=== PATIENT | female | born 1975 | race Caucasian/White ===

== ENCOUNTER 2016-10-26 07:13 | Emergency (ER) | payer OTHER ==
[~2016-10-26] VITALS: Ht 157.5 cm; Wt 108.9 kg
[~2016-10-26 07:13] MED LIST: AMOXICOT500 MG PO; ASPIRIN CHILDRE81 MG PO; ATENOLOL25 M1 PO; ATORVASTATIN CA10 MG PO; AUGMENTIN 875875 MG PO; BACTRIM DS 8001 TAB PO; CEPHALEXIN500 MG PO; FIBRO-TABS1 TAB PO; FLEXERIL10 MG PO; FLUOXETINE HYDR20 MG PO; FUROSEMIDE80 M1 PO; GOOD SENSE IBU200 MG PO; HYZAAR 100-251 EACH PO; HYZAAR 25 MG-101 TAB PO; K-DUR 20MEQ TA20 MEQ PO; KEFLEX500 MG PO; LASIX40 MG PO; LIPITOR40 M1 PO; LOSARTAN POTASS1 TA3 PO; MAGNESIUM OXID400 M1 PO; METHADONE H5 MG/5 M2 PO; METHADONE HC10 MG/M1 PO; MOBIC15 MG PO; OMEPRAZOLE40 MG PO; PERCOCET 325 MG1 TA2 PO; PERCOCET 5-3251 EACH PO; POTASSIUM CHLO20 ME1 PO; POTASSIUM CHLO20 ME2 PO; TORADOL10 MG PO; TRAZODONE50 MG PO; VICODIN 300 MG-1 TAB PO; VICODIN5-300 PO; VOLTAREN 25MG T25 MG PO
--- NOTE | 2016-10-26 08:01 | ED GI/GU/ABDOMINAL COMPLAINT ---
History of Present Illness General Chief Complaint: General Adult Stated Complaint: WEAKNESS, NAUSEA, HAND SWELLING, Source: patient, family, old records Exam Limitations: no limitations Vital Signs & Intake/Output Vital Signs & Intake/Output Vital Signs Date Time Temp Pulse Resp B/P Pulse O2 O2 Flow FiO2 Ox Delivery Rate 10/26 1450 97.1 96 18 125/65 96 10/26 1152 98.1 82 18 129/84 96 10/26 0717 98.0 80 18 95 Room Air Allergies Coded Allergies: NO KNOWN ALLERGIES (12/03/15) Reconcile Medications Aspirin (Children's Aspirin) 81 MG TAB.CHEW 81 MG PO DAILY HEART HEATLH Atenolol 25 MG TABLET 1 TAB PO DAILY BP (Reported) Atorvastatin Calcium (Lipitor) 40 MG TABLET 1 TAB PO DAILY CHOLESTEROL ( Reported) Furosemide 80 MG TAB 1 TAB PO DAILY FLUID RETENTION (Reported) Ibuprofen 200 MG TABLET 4 TAB PO DAILY PRN PAIN (Reported) LOSARTAN/HYDROCHLOROTHIAZIDE (Hyzaar 100-25 Tablet) 1 EACH TABLET 1 TAB PO DAILY BP (Reported) Magnesium Oxide 400 MG TABLET 1 TAB PO DAILY SUPPLEMENT (Reported) Methadone HCl 5 MG/5 ML SOLUTION 128 MG PO DAILY PAIN (Reported) Oxycodone HCl/Acetaminophen (Percocet 5-325 MG Tablet) 1 EACH TABLET 1 TAB PO Q4P PRN PAIN MODERATE TO SEVERE Potassium Chloride 20 MEQ TAB.ER.PRT 1 TAB PO BID Supplement TRAZODONE HCL (Trazodone HCl) 50 MG TAB 1 TAB PO QPM SLEEP (Reported) Triage Note: 41 Y/O FEMALE C/O GENERAL WEAKNESS AND "FEELING RUN DOWN" SINCE LAST NIGHT. STATES SHE HAS A HISTORY OF LOW POTASSIUM AND LOW MAGNESIUM AND THIS MAY FEEL SIMLIAR. WOKE UP TODAY WITH NAUSEA AND HEADACHE. STATES BOTH UPPER EXTREMITIES FEEL "WEIRD, NUMB". SPEAKING CLEARLY WITH NO NEURO DEFICITS NOTED. DENIES PAIN. AFEBRILE. Triage Nurses Notes Reviewed? yes ? n Is pt currently ? No HPI: Patient presents for evaluation of nausea weakness dizziness left arm and chin numbness, head congestion and headache/facial pressure that began about 4:00 this morning upon awakening. She tried Tylenol Cold medication without improvement. Symptoms are described as moderate to severe in intensity and essentially constant. She states she had similar symptoms the last time she had a low potassium and magnesium level. She denies any associated fever, vomiting, diarrhea, dysuria, rashes, known ill contacts or recent travel. Past History Travel History Traveled to [place] past 21 day No Medical History Any Pertinent Medical History? 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 Hx Contributory? No Review of Systems Review of Systems Constitutional: Reports: no symptoms. EENTM: Reports: see HPI. Respiratory: Reports: no symptoms. Cardiovascular: Reports: no symptoms. GI: Reports: no symptoms. Genitourinary: Reports: no symptoms. Musculoskeletal: Reports: no symptoms. Skin: Reports: no symptoms. Neurological/Psychological: Reports: headache, numbness. Hematologic/Endocrine: Reports: no symptoms. Immunologic/Allergic: Reports: no symptoms. All Other Systems: Reviewed and Negative Physical Exam Physical Exam Gastrointestinal: SEE BELOW Comments: Gen.: Well-nourished, well-developed, no acute respiratory distress. Head: Normocephalic, atraumatic. Face: tenderness, mild, to percussion over frontal and maxillary sinuses Eyes: Normal inspection bilaterally Ears: Normal inspection bilaterally Nose: Normal inspection Throat/mouth : Tacky mucosa no oropharyngeal erythema or soft tissue swelling Neck: Supple, full range of motion, no goiter Heart: Regular rate and rhythm, no murmurs rubs or gallops Lungs: Clear to auscultation bilaterally with normal air entry Chest: Nontender Back: Normal range of motion Abdomen: Soft, mild diffuse tenderness without rebound or guarding, nondistended , normal bowel sounds Extremities: Normal range of motion grossly, equal radial pulses, no cyanosis clubbing or edema Neurologic: Cranial nerves grossly intact, speech is clear Skin: warm and dry Psychiatric: Calm, cooperative, no apparent delusions or hallucinations Core Measures ACS in differential dx? No Severe Sepsis Present: No Septic Shock Present: No Progress Differential Diagnosis: ELECTROLYTE ABNORMALITY, cva, BRAIN MASS, CERVICAL DISC DISEASE,VIRAL SYNDROME Plan of Care: Orders Procedure Date/time Status RAPID VIRAL INFLUENZA A 10/26 799 Complete URINALYSIS 10/26 799 Active THYROID STIMULATING HORMONE 10/26 799 Complete MAGNESIUM 10/26 799 Complete COMPREHENSIVE METABOLIC PANEL 10/26 799 Complete CBC WITHOUT DIFFERENTIAL 10/26 799 Complete EKG 10/26 799 Active Laboratory Tests 10/26/16 1148: Urine Color YEL, Urine Clarity CLEAR, Urine pH 6.0, Ur Specific [place] 1.025, Urine Protein NEG, Urine Ketones NEG, Urine Nitrite NEG, Urine Bilirubin NEG, Urine Urobilinogen 0.2, Ur Leukocyte Esterase NEG, Ur Microscopic SEDIMENT EXAMINED, Urine RBC Pending, Urine Hemoglobin NEG, Urine Glucose NEG 10/26/16 0826: Anion Gap 11, Estimated GFR > 60, BUN/Creatinine Ratio 25.0, Glucose 122 H, Calcium 8.8, Magnesium 1.7, Total Bilirubin 0.7, AST 23, ALT 34, Alkaline Phosphatase 92, Total Protein 7.2, Albumin 4.1, Globulin 3.1, Albumin/Globulin Ratio 1.3, TSH 1.540, CBC w Diff NO MAN DIFF REQ, RBC 4.19 L, MCV 86.9, MCH 29.5, RDW 13.1, MPV 7.9, Gran % 80.4 H, Lymphocytes % 13.9 L, Monocytes % 4.4, Eosinophils % 1.2, Basophils % 0.1, Absolute Granulocytes 5.8, Absolute Lymphocytes 1.0 L, Absolute Monocytes 0.3, Absolute Eosinophils 0.1, Absolute Basophils 0, PUBS MCHC 34.0 Initial ED EKG: NSR, rate (68), nonspecific ST T wave chg Prior EKG: unchanged Comments: 10/26/2016 12:43:36 PM I have updated Yokasta on her test results. Regarding her low potassium she will increase her potassium supplementation and the intake of potassium rich foods. She also have this reevaluated by her primary care physician. However during my discussion/updated with Yokasta she mentioned numbness and tingling and a "numb feeling" of the left upper extremity and hand. Whereas she had previously mentioned a generalized weakness and a "funny feeling" of both arms, she is now describing focal neuro symptoms of the left upper extremity. Examination reveals mild weakness with hand grasp and mild clumsiness with finger to nose testing. additional testing ordered. remaining testing unremarkable. given the clinical presentation, initial bilateral symptoms and normal head ct, i doubt cva. Departure Departure Disposition: HOME OR SELF CARE Condition: Stable Clinical Impression Primary Impression: Hypokalemia Secondary Impressions: Generalized weakness, Paresthesias Referrals: DIMITRI IRVING MD (PCP/Family) Additional Instructions: Take your usual as of potassium today as discussed. Increase your potassium to 3 doses per day and contact Dr. Irving's office to arrange for follow-up potassium level and office appointment (call tomorrow). Return if any concerns or sudden worsening. Please note that there might be incidental findings in your evaluation that are unrelated to the current emergency department visit. Please notify your primary care doctor about this emergency department visit in order to obtain and review all of the testing performed so that these incidental findings can be monitored as needed. If you had an x-ray performed, please understand that some fractures may not be seen on the initial set of x-rays. If your symptoms persist you might need a repeat set of x-rays to check for such a fracture. If you had a laceration evaluated, please understand that foreign bodies such as glass or wood may not be visible to the naked eye or on plain x-rays. If the wound becomes red, swollen, increasingly more painful or if there is any drainage from the wound, please have it reevaluated by a physician for the possibility of a retained foreign body. Thank you for choosing the [facility] Emergency Department for your care. It was a pleasure to serve you today. Aleks Alvares M.D. [facility] Departure Forms: Customer Survey General Discharge Information
[2016-10-26 08:34] LABS: ABSOLUTE BASOPHIL COUNT 0 /CUMM (0.0-0.2); ABSOLUTE EOSINOPHIL COUNT 0.1 /CUMM (0.0-0.7); ABSOLUTE GRANULOCYTE CT 5.8 /CUMM (1.4-6.5); ABSOLUTE MONOCYTE COUNT 0.3 /CUMM (0.10-0.60); BASOPHIL % 0.1 % (0.0-2.0); EOSINOPHIL % 1.2 % (0-5); GRANULOCYTE % 80.4 % (42.2-75.2); HEMATOCRIT 36.4 % (37-47); MEAN CORPUSCULAR HGB 29.5 PG (27.0-31.0); MEAN CORPUSCULAR VOLUME 86.9 FL (81.0-99.0); MEAN PLATELET VOLUME 7.9 FL (7.4-10.4); PLATELET COUNT 202 /CUMM (130-400); RBC DISTRIBUTION WIDTH 13.1 % (11.5-14.5); RED BLOOD CELL CT 4.19 /CUMM (4.20-5.40); WHITE BLOOD CELL COUNT 7.2 /CUMM (4.8-10.8)
--- NOTE | 2016-10-26 13:30 | CT SCAN REPORT ---
EXAMINATION: CT SCAN OF THE HEAD. CT SCAN OF THE CERVICAL SPINE CLINICAL INFORMATION: Upper extremity weakness and numbness. CVA COMPARISON: CT scan of the head January 2016 TECHNIQUE: CT scan of the head was performed without contrast CT scan of the cervical spine with additional sagittal coronal reformatted images FINDINGS: CT head: There is no mass hemorrhage or cerebral edema. Ventricles and basal cisterns are normal. Sinuses: Clear. Mastoid air cells clear. Subcutaneous soft tissues: Normal. Bone: Normal. CT Cervical spine: Vertebral bodies are normally aligned without fracture or subluxation. There is irregularity of the superior endplate of C7 likely related to a Schmorl's node likely without clinical significance. The surrounding soft tissues are normal. IMPRESSION: CT head: Normal. No findings to suggest CVA CT cervical spine: Within normal limits.
--- NOTE | 2016-10-26 14:38 | ULTRASOUND REPORT ---
EXAMINATION: DOPPLER VENOUS ULTRASOUND UPPER EXTREMITY, LEFT CLINICAL INFORMATION: Left upper extremity edema and swelling. COMPARISON: None. TECHNIQUE: Grayscale, Doppler and spectral analysis of the upper extremity and neck was performed. FINDINGS: There is no evidence for a deep venous thrombosis within the visualized upper extremity and neck veins. There is normal flow, compression and augmentation. IMPRESSION: Unremarkable examination. Specifically, no evidence for DVT.
[2016-10-26 14:50] VITALS: BP 125/65
[2016-12-08] MEDS ORDERED: POTASSIUM CHLO20 ME2 PO (08:12)
[2016-12-08] MEDS ORDERED: CALCIUM CHEW PO (08:13)
[2016-12-08] MEDS ORDERED: DAILY MULTIPLE1 EACH PO (08:14)
[2016-12-08] MEDS ORDERED: ASPIRIN325 M2 PO (08:14)
== END 2016-10-26 15:32 ==
LOC: ERH 07:13
PROVIDERS: Emergency Medicine
DX: E87.6 Hypokalemia (principal); R53.1 Weakness; R20.2 Paresthesia of skin; M79.89 Other specified soft tissue disorders; R51 Headache; I10 Essential (primary) hypertension; J45.909 Unspecified asthma, uncomplicated
CPT/HCPCS: 81001; 87804; 87804-59; 93005; 93010; 96374; J2405

== ENCOUNTER 2016-12-13 04:39 | Inpatient (IN) | payer OTHER ==
[~2016-12-13] VITALS: Ht 162.6 cm; Wt 110.7 kg
[~2016-12-13 04:39] MED LIST changes: +ASPIRIN325 M2 PO; +CALCIUM CHEW PO; +DAILY MULTIPLE1 EACH PO
--- NOTE | 2016-12-13 08:06 | Admission Core Measures ---
Admission Meds I reviewed the following Meds: Current Medications Sig/Meaghan Start time Last Medication Dose Stop Time Status Admin Cefazolin Sodium 3,000 MG ONCE 12/13 NR (Kefzol-Ancef Inj) 12/13 2358 Heparin Sodium 5,000 UNIT ONCE 12/13 NR (Porcine) 12/13 2358 Acute Coronary Syndrome Inclusion Criteria ACS Diagnosis No Inpatient Core Measures LDL Reminder: If No, please order W/I first 24hr of stay Congestive Heart Failure Inclusion Criteria CHF Diagnosis No Cerebrovascular accident Inclusion Criteria CVA/TIA Diagnosis No Inpatient Core Measures Bedside Swallow Eval Reminder: If BSE failed, place ST order Antithrombotic Reminder: Order Antithrombotic Medication by end of day 2 Antithrombotic Reminder: Document Reason Antithrombotic Not ordered by end of day 2 AFIB/Flutter Reminder: If Present, add to problem list AFIB/Flutter Reminder: Order Anticoag Medication for pts with AFIB/Flutter Atherosclerosis Reminder: If Present, add to problem list LDL Reminder: If No, please order W/I first 24hr of stay PT Order Reminder: If No, please order Venous thromboembolism Inpatient Core Measures VTE Risk Factors: Age > 40, Obesity, Surgery [facility] prophylaxis d/t No contraindications No VTE Pharm Prophylaxis d/t No contraindications Inclusion Criteria - Per Current guidelines, there needs to be overlap - treatment for the first 5 days of Warfarin therapy. - Parenteral Anticoagulation (IV or SC) needs to be - given along with Warfarin therapy. VTE Diagnosis No VTE Type NONE VTE Confirmed by (Test) NONE Problem List As ranked by this Provider includes Assessment & Plan 1. Status post gastric bypass for obesity HOME MEDS Home Med List Aspirin (Aspirin*) 325 MG TABLET 1 TAB PO DAILY PROPHO (Reported) Atenolol 25 MG TABLET 1 TAB PO DAILY BP (Reported) Atorvastatin Calcium (Lipitor) 40 MG TABLET 1 TAB PO DAILY CHOLESTEROL ( Reported) [CALCIUM CHEW] 500 MG 2 TAB PO DAILY PROPHO (Reported) Furosemide 80 MG TAB 1 TAB PO DAILY FLUID RETENTION (Reported) LOSARTAN/HYDROCHLOROTHIAZIDE (Hyzaar 100-25 Tablet) 1 EACH TABLET 1 TAB PO DAILY BP (Reported) Magnesium Oxide 400 MG TABLET 1 TAB PO DAILY SUPPLEMENT (Reported) Methadone HCl 5 MG/5 ML SOLUTION 128 MG PO DAILY PAIN (Reported) Multivitamin (Daily Multiple Vitamin) 1 EACH TABLET 1 TAB PO DAILY PROPHO ( Reported) Potassium Chloride 20 MEQ TAB.ER.PRT 1 TAB PO TID HYPOKALEMIA (Reported)
--- NOTE | 2016-12-13 10:07 | Operative Report ---
Operative/Inv Procedure Report Surgery Date: 12/13/16 Name of Procedure: Laparoscopic Gastric Bypass Pre-Operative Diagnosis: Morbid Obesity BMI 45, HTN, CHARISSE Post-Operative Diagnosis: Same Estimated Blood Loss: less than 50ml Surgeon/Critical Care Nurse Practitioner: SUKHDEV SILVA DO Anesthesia: general endotracheal tube IV Fluids: 1100 cc Drains: 10 Fr RUQ TANYA Drain Specimens: None Complications: None Condition: Stable Operative Indication: This is a 41-year-old female presented to the office for workup for bariatric surgery. After appropriate workup was completed we discussed with the patient the band, the sleeve, and the gastric bypass. The patient chose to undergo a gastric bypass. All risks including but not limited to bleeding, infection, leak, stricture, marginal ulcer, injury to surrounding bowel/esophagus/stomach/ liver/spleen, malabsorption/malnutrition, dumping syndrome, internal hernia/ small bowel torsion, DVT/PE, and mortality of 09/999 patients were discussed in detail. The patient understood everything and decided to proceed. Operative/Procedure Note Note: The patient was brought to the operating room and placed on the table in supine position. Venodyne stockings were placed and adequate general endotracheal anesthesia was obtained. The patient was prepped and draped in standard surgical fashion. Began the procedure by making a 2 cm transverse incision supraumbilically and slightly to the left of the midline. Then using a 12 mm clear Visiport and a 10 mm 0 laparoscope the abdominal cavity was accessed. Great care was taken to go through the anterior rectus sheath, the posterior rectus sheath, and through the peritoneum. Once we entered the peritoneum the abdominal cavity was insufflated to 15 mmHg. Upon initial examination no obvious gross pathology was seen. Accessory trocars were placed, 5 mm in the epigastrium for the Jeff liver retractor. The liver retractor was inserted and the liver was retracted anteriorly exposing the hiatus, no obvious hiatal hernia was seen. 5 mm ports were placed in the right and left upper quadrant, 5 mm left lateral port, and a 12 mm right lateral port. Began the procedure by mobilizing the angle of His and the left juan of the diaphragm. The stomach was retracted towards the feet and the peritoneum was lysed until the left juan was clearly visualized. We then brought our attention to the lesser curvature, and at the second vessel will began accessing the retrogastric space. Was done using Harmonic scalpel maintaining hemostasis. Once the retrogastric space was accessed we began creating our pouch using 60 mm purple staple load 4. The pouch was created around an Chery tube. Once the pouch was completely disconnected from the gastric remnant we examined the staple lines, some bleeding was noted and that was controlled using endoclips. We then brought our attention to the small bowel, the omentum was retracted above the transverse colon and the ligament of Treitz was identified. The small bowel was run 50 cm and divided using 60 mm estrada staple load. 2 clips were placed on the proximal staple line which was the biliopancreatic limb. That limb was run to the ligament of Treitz to assure that that was the blind limb. Following this the omentum was divided using Harmonic scalpel. After the omentum was divided the small bowel was coming up to the gastric pouch with no tension. At that point an enterotomy was made 5 cm from the prior divided distal staple line, group home between the mesenteric and antimesenteric part. A gastrotomy was made posterior to the staple line. A side to side gastrojejunostomy was created using 45 mm purple staple load approximately 3-3-1/2 cm in diameter. The Chery tube was passed through the common enterotomy, and the common enterotomy was closed using 2-0 Vicryl suture in a running fashion double layer. Following this the small bowel was clamped off distal to the anastomosis, and we preformed an air and a methylene blue leak test. No obvious leak was noted. All the methylene blue was suctioned out. The small bowel was then run 120 cm and an enterotomy was made on the antimesenteric side. Another enterotomy was made on the antimesenteric side of the biliopancreatic limb. A side to side functional end end jejunojejunostomy was created using 60 mm estrada staple load. The common enterotomy was closed using a 60 mm estrada staple load followed by a 45 mm estrada staple load. Some bleeding was noted from the staple line and that was controlled using endoclips as well. The mesenteric defect was closed using 2-0 Tycron suture in a running fashion. At that point we examined both anastomoses no obvious bleeding was noted and both appeared intact. A 10 Maltese TANYA drain was placed through the right upper quadrant incision under the liver and over the spleen. All ports were removed under direct visualization, no obvious bleeding was noted. Skin was closed using 4-0 Monocryl. Steri-Strips and dressings were placed. The patient was successfully extubated and transferred to the recovery room in stable condition. The patient tolerated the procedure well with no complications. Findings: No hiatal hernia, 120 cm alimentary limb CC: DASIA BAEZ,DIMITRI
[2016-12-13 12:00] VITALS: BP 132/80
[2016-12-13 14:48] VITALS: BP 136/60
--- NOTE | 2016-12-13 14:55 | PN- Bariatrics ---
Subjective Subjective: POST-OP NOTE: Reports feeling tired. "I didn't sleep much last night". No nausea. Some epigastric discomfort. Not yet out of bed. No dizziness. No shortness of breath. No chest pains. Objective Vital Signs and I&Os Vital Signs Date Time Temp Pulse Resp B/P Pulse O2 O2 Flow FiO2 Ox Delivery Rate 12/13 1407 Room Air 12/13 1200 98 Nasal 4.0L Cannula 12/13 1200 97.7 68 18 132/80 98 Nasal 4.0L Cannula Intake & Output 12/13 1600 12/13 0800 12/13 0000 12/12 1600 12/12 0800 12/12 0000 Intake Total Output Total Balance Patient 244 lb Weight Physical Exam: General - alert & oriented x 3. sleepy. no acute distress. Lungs - clear bilaterally. no w/r/r. Cardiac - s1s2. reg. Abdomen - soft. dressings c/d/i. TANYA drain with serosang drainage. Extremities - warm bilaterally. no c/c/e. calves soft and nontender b/l. venodynes active. Assessment/Plan Assessment/Plan This 41 year old female with hx mo, htn, hld, venous stasis, RA, capri (no cpap), migraines, is POD#0 s/p lap gastric bypass pain control as ordered npo pmn for upper gi study in am due to void this evening ancef x 2 post-op oob/ambulation lovenox and lovenox teaching for home protonix - gi ppx f/u am labs monitor TANYA drain methadone (home med) will d/w Core Measures/Miscellaneous Venous Thromboembolism VTE Risk Factors: Age > 40, Obesity, Surgery VTE Contraindications: No Contraindications VTE Diagnosis: No VTE Type: NONE VTE Confirmed by (Test): NONE Beta Sasha Is Beta Sasha a Home Med? Yes Antibiotics Is Patient on Antibiotics? Yes If Yes: prophylaxis
[2016-12-13 22:46] VITALS: BP 118/60
[2016-12-14 05:50] VITALS: BP 118/60
--- NOTE | 2016-12-14 07:22 | PN- Bariatrics ---
See Addendum Subjective Subjective: The patient was seen this this morning postoperatively day #1. She reports that her pain is under adequate control with current pain regiment. She denies any nausea and has no other complaints the current time. Objective Vital Signs and I&Os Vital Signs Date Time Temp Pulse Resp B/P Pulse O2 O2 Flow FiO2 Ox Delivery Rate 12/14 0600 95 Nasal 2.0L Cannula 12/14 0550 98.8 61 20 118/60 93 / 0000 Nasal 2.0L Cannula 12/14 0000 94 Nasal 2.0L Cannula / 2246 97.8 72 20 118/60 94 Room Air / 2000 Nasal 2.0L Cannula / 1600 Nasal 2.0L Cannula 12/13 1600 95 Nasal 2.0L Cannula 12/13 1448 98.1 70 18 136/60 92 Nasal 4.0L Cannula 12/13 1407 Room Air / 1200 98 Nasal 4.0L Cannula / 1200 97.7 68 18 132/80 98 Nasal 4.0L Cannula Intake & Output 12/14 08/ 0000 /05 1600 / 0800 04 0000 / 1600 Intake Total 1000 360 Output Total 600 645 365 Balance 400 -285 -365 Intake, IV 1000 Intake, Oral 0 360 Output, 50 45 65 Drainage Output, Urine 550 600 300 Patient 244 lb Weight Physical Exam: Gen.: Alert and in no obvious distress Skin: Warm and dry Abdomen: Soft, obese, appropriate incisional tenderness, bowel sounds positive. Port sites were clean, dry, and intact. There is a TANYA 1 holding suction with serosanguineous drainage and bulb. Extremities: Bilateral lower extremities are warm without calf tenderness or significant edema. Assessment/Plan Assessment/Plan Assessment: 41-year-old female status post lap scopic gastric bypass postoperative day 1. The patient is progressing as expected and her pain is under adequate control. Plan: The patient be kept nothing by mouth for an upper GI series this morning if that is okay she be restarted on stage I diet Decrease IV fluids Follow-up morning laboratory studies GI and DVT prophylaxis Lovenox education Out of bed and ambulate Incentive spirometry Core Measures/Miscellaneous Venous Thromboembolism VTE Risk Factors: Age > 40, Obesity, Surgery VTE Contraindications: No Contraindications VTE Diagnosis: No VTE Type: NONE VTE Confirmed by (Test): NONE Beta Sasha Is Beta Sasha a Home Med? Yes Antibiotics Is Patient on Antibiotics? No
[2016-12-14 08:15] LABS: ABSOLUTE BASOPHIL COUNT 0 /CUMM (0.0-0.2); ABSOLUTE EOSINOPHIL COUNT 0 /CUMM (0.0-0.7); ABSOLUTE GRANULOCYTE CT 6.6 /CUMM (1.4-6.5); ABSOLUTE LYMPH COUNT 1.4 /CUMM (1.2-3.4); ABSOLUTE MONOCYTE COUNT 0.5 /CUMM (0.10-0.60); BASOPHIL % 0.3 % (0.0-2.0); EOSINOPHIL % 0.2 % (0-5); GRANULOCYTE % 77.3 % (42.2-75.2); HEMATOCRIT 33.1 % (37-47); MEAN CORPUSCULAR HGB 29.7 PG (27.0-31.0); MEAN CORPUSCULAR HGB CONC 33.7 G/DL (33.0-37.0); MEAN CORPUSCULAR VOLUME 88.2 FL (81.0-99.0); MEAN PLATELET VOLUME 8.7 FL (7.4-10.4); PLATELET COUNT 195 /CUMM (130-400); RBC DISTRIBUTION WIDTH 13.6 % (11.5-14.5); RED BLOOD CELL CT 3.76 /CUMM (4.20-5.40); WHITE BLOOD CELL COUNT 8.5 /CUMM (4.8-10.8)
[2016-12-14] MEDS ORDERED: PROTONIX40 M3 PO (10:50)
[2016-12-14] MEDS ORDERED: LOVENOX40 MG/0.1 SC (10:52)
[2016-12-14] MEDS ORDERED: DILAUDID2 M1 PO (10:53)
--- NOTE | 2016-12-14 10:56 | Patient Discharge Instructions ---
Discharge Instructions General Discharge Information You were seen/treated for: Morbid obesity You had these procedures: Laparoscopic gastric bypass Watch for these problems: Significantly increased pain, nausea, temperatures over 101. Increased redness or drainage from around the incisions Lower leg pain or difficulty breathing No bath, but you may shower: Yes Other wound care: Remove dressings when you get home leaving white strips on until seen by her surgeon May shower regularly but no baths Special Instructions: See preprinted information booklet Ambulate frequently May use Gas-X for gas pain Diet Recommended Diet: Bariatric Activity Activity Self Limited: Yes Pounds, do NOT lift more than: 10 Acute Coronary Syndrome Inclusion Criteria At DC or during hospital stay patient has or had the following: ACS DIAGNOSIS No Discharge Core Measures Meds if any: Prescribed or Continued at Discharge Meds if any: NOT Prescribed or Continued at Discharge Congestive Heart Failure Inclusion Criteria At DC or during hospital stay patient has or had the following: CHF DIAGNOSIS No Discharge Core Measures Meds if any: Prescribed or Continued at Discharge Meds if any: NOT Prescribed or Continued at Discharge Cerebrovascular accident Inclusion Criteria At DC or during hospital stay patient has or had the following: CVA/TIA Diagnosis No Discharge Core Measures Meds if any: Prescribed or Continued at Discharge Meds if any: NOT Prescribed or Continued at Discharge Venous thromboembolism Inclusion Criteria VTE Diagnosis No VTE Type NONE VTE Confirmed by (Test) NONE Discharge Core Measures - Per Current guidelines, there needs to be overlap - treatment for the first 5 days of Warfarin therapy. - If discharged on Warfarin prior to 5 days of - overlap therapy, the patient will need to be - assessed for post discharge needs including - *Post discharge parental anticoagulation - *Warfarin and/or parental anticoagulation education - *Follow up date to check INR post discharge At least 5 days overlap therapy as Inpatient No Meds if any: Prescribed or Continued at Discharge Note: Overlap Therapy is Warfarin and Anticoagulant Meds if any: NOT Prescribed or Continued at Discharge
--- NOTE | 2016-12-14 10:58 | Surg Short-stay <48hrs Dis Sum ---
Visit Information Visit Dates Admission Date: 12/13/16 Discharge Date: 12/15/16 Surgical Short Stay DC Summary Admission Diagnosis: Morbid Obesity (BMI 45), HTN, CHARISSE Final Diagnosis: Same s/p gastric bypass (12/13/16) post-op asymptomatic bradycardia Procedure(s): Laparoscopic gastric bypass (12/13/16) asymptomatic bradycardia Summary/Significant Findings: The patient had an elective laparoscopic gastric bypass on 12/13/16, which was uneventful. Postoperatively the patient progressed as expected, her pain was under adequate control, and she tolerated a stage I diet without nausea. was called to consult on post-op day#2 due to asymptomatic bradycardia, for which her atenolol was held. He recommends cutting her dose of atenolol in half for now, and following up in a few weeks in his office. Her TANYA drain was removed prior to her discharge to home. Lovenox teaching done for continued treatment at home. Condition at Discharge: Stable Discharge Disposition: home or self care Discharge instructions provided to patient/family: Yes Post discharge follow-up plan: Call the office to be seen in one week schedule follow up appointment with
--- NOTE | 2016-12-14 12:06 | RADIOLOGY REPORT ---
EXAMINATION: FL UPPER GI SERIES CLINICAL INFORMATION: 41-year-old female status post gastric bypass surgery done yesterday. Follow up baseline study is requested to exclude any possibility of anastomotic leak. COMPARISON: None TECHNIQUE: A single-contrast (with Gastrografin only) upper GI series with fluoroscopy and spot imaging was performed. The patient ingested Gastrografin without difficulty and was evaluated in the upright position. FINDINGS: The visualized part of the esophagus grossly appears unremarkable. The Gastrografin was seen to flow from the esophagus across the gastroesophageal junction into the residual part of the stomach and across the gastrojejunal anastomosis into the proximal jejunal anastomotic loop. No evidence of any contrast extravasation identified. FLUOROSCOPY TIME: 1 minute 41 seconds NUMBER OF IMAGES: 50 IMPRESSION: Normal immediate postsurgical changes of gastric bypass surgery without any radiographic evidence of an anastomotic leak or obstruction.
[2016-12-14 14:21] VITALS: BP 118/70
--- NOTE | 2016-12-14 16:23 | NUR ---
PT NOTED TO ONLY HAVE VOIDED X1 OVER 8 HR PERIOD. URINE CONCENTRATED. PT ON CONTINUOUS FLUIDS. PT WITH GENERALIZED EDEMA THROUGHOUT. PT BLADDER SCANNED- MAX AMT NOTED 75 MLS. SURGICAL PA TAISHA REBOLLAR KNOWS PT WELL FROM PREVIOUS HOSPITAL VISITS AND REPORTS PT IS PRONE TO EDEMA. PT NORMALLY TAKES LASIX BUT IS ON HOLD PER PA. TO D/C CONTINUOUS FLUIDS FOR NOW. WILL CONT TO MONITOR.
[2016-12-14 21:59] VITALS: BP 116/72
[2016-12-15 07:25] VITALS: BP 116/68
--- NOTE | 2016-12-15 09:52 | PN- Bariatrics ---
Subjective Subjective: Reports pain controlled. Tolerating stage 1 diet. Reports "not peeing much". Asking about her lasix, as she usually takes 80 mg daily. Atenolol held this morning due to bradycardia, which appears asymptomatic. She denies dizziness. No shortnes of breath. No chest pains. Not passing flatus and no bm yet, although she reports a history of chronic constipation. She is willing to try miralax and dulcolax. Ambulating without difficulty. Objective Vital Signs and I&Os Vital Signs Date Time Temp Pulse Resp B/P Pulse O2 O2 Flow FiO2 Ox Delivery Rate 12/15 0943 48 114/62 12/15 0800 96 Room Air Room Air 12/15 0725 97.8 48 18 116/68 95 Room Air 12/15 0600 Room Air 12/14 2159 97.5 55 20 116/72 97 Room Air 12/14 1600 96 Room Air 12/14 1421 97.9 50 20 118/70 96 Room Air 12/14 1200 96 Room Air Intake & Output 12/15 1600 12/15 0800 12/15 0000 12/14 1600 12/14 0800 12/14 0000 Intake Total 30 631 262 9910 360 Output Total 200 165 130 600 645 Balance -170 -15 620 400 -285 Intake, IV 550 1000 Intake, Oral 30 150 200 0 360 Number 0 Bowel Movements Output, 65 30 50 45 Drainage Output, Urine 200 100 100 550 600 Physical Exam: General - alert & oriented x 3. comfortable. no acute distress. Lungs - clear bilaterally. no w/r/r. Cardiac - s1s2. bradycardic, heart rate 50s. Abdomen - soft. expected incisional tenderness. dressings c/d/i. TANYA drain with serosang drainage. Extremities - 1+ edema b/l lower legs. calves soft and nontender b/l. athrombics in place. Assessment/Plan Assessment/Plan This 41-year-old female with hx morbid obesity (BMI 45), htn, capri, is POD#2 s/p lap gastric bypass, post-op asymptomatic bradycardia tolerating stage 1 bariatric diet bolus 500 mls ns this morning (labs show slight increase in BUN), and borderline urine output monitor u/o check labs check ekg hold atenolol lovenox teaching done oob/ambulating try miralax and dulcolax called for bradycardia. ?continue to hold atenolol when discharged. ? hold lasix TANYA drain removed d/c planning for today pending cardiac eval will d/w Core Measures/Miscellaneous Venous Thromboembolism VTE Risk Factors: Age > 40, Obesity, Surgery VTE Contraindications: No Contraindications VTE Diagnosis: No VTE Type: NONE VTE Confirmed by (Test): NONE Beta Sasha Is Beta Sasha a Home Med? Yes Antibiotics Is Patient on Antibiotics? No
--- NOTE | 2016-12-15 11:08 | Cons- Cardiology ---
General Information and HPI Consulting Request Date of Consult: 12/15/16 Requested By: SUKHDEV SILVA DO History of Present Illness: Yokasta is a 41 year old female with hhistory of hypertension and dyslipidemia who I had initially seen for symptoms of chest discomfort, shortness of breath and leg swelling. In consideration of some past palpitations this patient was started on Atenolol. She is now s/p a gastric bypass procedue and is noted to be bradycardic with a HR reaching a kimo of 48. More typically her heart rate is in the low 50's. Atenolol has been continued through this hospital stay. From a symptomatic standpoint, Yokasta is doing well. She denies any lightheadedness and is currently free of palitations or shortness of breath. Prior cardiac workup included a stress test that was negative for ischemia and an echocardiogram showing a normal EF of 65% with mild left atrial enlargment and mild septal hypertrophy. Allergies/Medications Allergies: Coded Allergies: No Known Allergies (12/08/16) Home Med List: Aspirin (Aspirin*) 325 MG TABLET 1 TAB PO DAILY PROPHO (Reported) Atenolol 25 MG TABLET 1 TAB PO DAILY BP (Reported) Atorvastatin Calcium (Lipitor) 40 MG TABLET 1 TAB PO DAILY CHOLESTEROL ( Reported) [CALCIUM CHEW] 500 MG 2 TAB PO DAILY PROPHO (Reported) Enoxaparin Sodium (Lovenox) 40 MG/0.4 ML SYRINGE 1 SYR SC DAILY BLOOD THINNER PATIENT HAS PERSCRIPTION AT HOME Furosemide 80 MG TABLET 1 TAB PO DAILY FLUID RETENTION (Reported) Hydromorphone HCl (Dilaudid) 2 MG TABLET 1 TAB PO Q4-6P PRN PAIN Losartan/Hydrochlorothiazide (Hyzaar 100-25 Tablet) 100 MG-25 MG TABLET 1 TAB PO DAILY BP (Reported) Magnesium Oxide 400 MG TABLET 1 TAB PO DAILY SUPPLEMENT (Reported) Methadone HCl 5 MG/5 ML SOLUTION 128 MG PO DAILY PAIN (Reported) Multivitamin (Daily Multiple Vitamin) 1 EACH TABLET 1 TAB PO DAILY PROPHO ( Reported) Potassium Chloride 20 MEQ TAB.ER.PRT 1 TAB PO TID HYPOKALEMIA (Reported) Review of Systems Review of Systems: obstructive sleep apnea Past History Medical History Blood Transfusion Hx: No Neurological: NONE EENT: NONE Cardiovascular: hypertension, hyperlipidemia Respiratory: asthma, mild objective sleep apnea with CPAP intolerance Gastrointestinal: NONE Hepatic: NONE Renal: NONE Musculoskeletal: osteoarthritis [facility]: [facility] Endocrine: HYPOKALEMIA Blood Disorders: NONE Cancer(s): NONE NURSE TRANSITION/Reproductive: HYSTERECTOMY Surgical History Surgical History: hysterectomy Family History Relations & Conditions If Any: MOTHER (hypertension, dyslipidemia). Family History Reviewed? Daughter: SLE and obesity Mother: HTN, hyperlipidemia Psychosocial History Where Do You Live? Home Services at Home: None Smoking Status: Current Some Day Smoker (quit 2010) ETOH Use: denies use Illicit Drug Use: remote percocet addiction Functional Ability ADLs Independent: dressing, eating, toileting, bathing. Exam & Diagnostic Data Vital Signs and I&O Vital Signs Date Time Temp Pulse Resp B/P Pulse O2 O2 Flow FiO2 Ox Delivery Rate 12/15 0943 48 114/62 12/15 0800 96 Room Air Room Air 12/15 0725 97.8 48 18 116/68 95 Room Air 12/15 0600 Room Air 12/14 2159 97.5 55 20 116/72 97 Room Air 12/14 1600 96 Room Air 12/14 1421 97.9 50 20 118/70 96 Room Air 12/14 1200 96 Room Air Intake & Output 12/15 1600 07 0800 / 0000 / 1600 12/14 0800 04/06 0000 Intake Total 30 334 331 7340 360 Output Total 200 165 130 600 645 Balance -170 -15 620 400 -285 Intake, IV 550 1000 Intake, Oral 30 150 200 0 360 Number 0 Bowel Movements Output, 65 30 50 45 Drainage Output, Urine 200 100 100 550 600 Physical Exam: General: WD/obese female in NAD; alert and oriented x 3 HEENT: NC/ AT, PERRL, EOMI Neck: no JVD, no carotid bruit Heart: Bradycardic with regular rhythm and 1/6 diastolic murmur and 2/6 systolic murmur at the apex and RUSB Lungs: clear bilaterally ABdomen: soft, obese, mildly tender with multiple surgical incision sites noted Extremities: no edema Diagnostic Data EKG Results sinus bradycardia Assessment/Plan Assessment/Plan * This patient has asymptomatic sinus bradycardia with well controlled blood pressure. Since the Atenolol does help with her palpitations, I would like to see this medication continued although it is reasonable to try a smaller dose of 12.5mg daily. A recent TSH is WNL. * This patient is stable for discharge from a cardiac standpoint with follow up in the office in one week to reassess her heart rate on the lower dose of Atenolol. Continue other cardiac meds as previously prescribed at home. Consult Acknowledgment - Thank you for your consult request.
[2016-12-15 13:30] VITALS: BP 116/60
== END 2016-12-15 14:37 | DRG 403 ==
LOC: ENRESERVDT → ENRESERVTM → SDA 04:39 → ENPENDDIS 04:39 → 2NB 04:39
PROVIDERS: Physician Assistant Surgical; ADMIT Surgery
PROC: 0D164ZA Bypass Stomach to Jejunum, Percutaneous Endoscopic Approach (ICD-10-PCS; principal; 2016-12-13)
DX: E66.01 Morbid (severe) obesity due to excess calories (principal); Z68.42 Body mass index [BMI] 45.0-49.9, adult; J45.909 Unspecified asthma, uncomplicated; E78.5 Hyperlipidemia, unspecified; I10 Essential (primary) hypertension; I87.2 Venous insufficiency (chronic) (peripheral); M06.9 Rheumatoid arthritis, unspecified; G47.33 Obstructive sleep apnea (adult) (pediatric)
CPT/HCPCS: 2NBP; 74240; 82436; 93005; 93010; J0131; J0690; J1170; J1644; J1650; J1885; J2405; J2765; J3250; J7040; J7042; S5012

== ENCOUNTER 2016-12-19 09:58 | Emergency (ER) | payer OTHER ==
[~2016-12-19 09:58] MED LIST changes: +DILAUDID2 M1 PO; +LOVENOX40 MG/0.1 SC; +PROTONIX40 M3 PO
--- NOTE | 2016-12-19 11:17 | ED GENERAL ADULT ---
History of Present Illness General Chief Complaint: General Adult Stated Complaint: WEAKNESS S/P GASTRIC BYPASS SURG LAST HX LOW K Source: patient, family Exam Limitations: no limitations Vital Signs & Intake/Output Vital Signs & Intake/Output Vital Signs Date Time Temp Pulse Resp B/P Pulse O2 O2 Flow FiO2 Ox Delivery Rate 12/19 1440 98.6 61 18 126/84 98 Room Air 12/19 1145 Room Air 12/19 1024 98.7 77 18 133/77 97 Room Air Allergies Coded Allergies: No Known Allergies (12/08/16) Reconcile Medications Atenolol 25 MG TABLET 0.5 TAB PO DAILY BP (Reported) take 12.5 mg daily (half tablet) per instead of full dose Enoxaparin Sodium (Lovenox) 40 MG/0.4 ML SYRINGE 1 SYR SC DAILY BLOOD THINNER PATIENT HAS PERSCRIPTION AT HOME Hydromorphone HCl (Dilaudid) 2 MG TABLET 1 TAB PO Q4-6P PRN PAIN Methadone HCl 5 MG/5 ML SOLUTION 128 MG PO DAILY PAIN (Reported) Pantoprazole Sodium (Protonix) 40 MG TABLET.DR 1 TAB PO DAILY anti ulcer Triage Note: C/O WEAKNESS, [place]UE[place] AND HEART PALPITATIONS SINCE LAST PM, S/P GASTRIC BYPASS 6 DAYS AGO. STATES SHE HAS A HX OF LOW POTASSIUM. Triage Nurses Notes Reviewed? yes : No Patient currently breastfeeds: No HPI: Ms. Barriga is a 41 yo f w/ PMH of HTN, HLD, CHARISSE, arthritis and obesity s/p gastric bypass 1 week ago resulting to the emergency department for generalized weakness. Patient states that she has a history of chronic hypokalemia for which she takes by mouth potassium. She had a gastric bypass performed approximately one week ago and was discharged this past Sunday. Patient denies any abdominal pain, fever, chills, nausea vomiting or diarrhea. She does say that she has had a headache over the past 2 days and today she endorses some mild photophobia. She feels overall weak. She's felt before with episodes of her potassium being low. He is told by her doctor that she should not be taking potassium pills as it might not pass through the gastric opening now after the surgery and reported to the ED for IV potassium. Past History Travel History Traveled to [place] past 21 day No Medical History Any Pertinent Medical History? 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 Hx Contributory? No Review of Systems Review of Systems Constitutional: Reports: see HPI. All Other Systems: Reviewed and Negative Comments Review of systems: See HPI, All other systems negative. Constitutional: +weakness, + malaise. no chills no fever, no malaise no weight loss HEENT: No visual changes no sore throat no congestion, no ear pain Cardiovascular: No chest pain , no palpitation , no orthopnea no ankle swelling Skin, no jaundice no rashes, no change in skin Respiratory: No dyspnea no cough no sputum no hemoptysis GI: + nausea. no vomiting, no diarrhea, no bloating/constipation : No dysuria No hematuria, no frequency, no discharge Muscle skeletal: No joint pain, no joint swelling, no back pain, no neck pain Neurologic: + headache. No numbness no confusion Psych: No stress no anxiety no depression,. Heme/endocrine: No bruising no bleeding no polyuria no polydipsia Immunology: No lymphadenopathy, no splenectomy Physical Exam Physical Exam General Appearance: well developed/nourished, no apparent distress, alert, awake Comments: Well-developed well-nourished person in no acute distress HEENT: Normal EENT exam; PERRL, EOMI, no nystagmus. HEAD is atraumatic. moist mucous membranes. Neck: Supple, no lymphadenopathy, normal range of motion without pain or tenderness Back: Nontender, no CVA tenderness. Full range of motion Cardiovascular: Regular rate and rhythms no murmurs rubs or gallops, normal JVP Respiratory: Chest nontender.There were no bony deformities, no asymmetry. No respiratory distress. Patient speaking in full complete sentences. Breath sounds clear to auscultation bilaterally: NO W/R/R Abdomen: + multiple incisions without erythema, swelling or pus. Soft, nontender nondistended, no appreciable organomegaly. Normal bowel sounds. No rebound/guarding, No appreciable enlargement of the abdominal aorta, No ascites. Extremity: No edema, full range of motion of extremities, normal and equal pulses bilaterally, 5 out of 5 strength noted to bilateral upper and lower extremities Neuro: Alert oriented x3, motor sensory normal, cranial nerves II through XII grossly intact. There were no obvious focal neurologic abnormalities. Skin: No appreciable rash on exposed skin, skin is warm and dry. Psych: Mood and affect is normal, memory and judgment is normal. Core Measures ACS in differential dx? No CVA/TIA Diagnosis: No Severe Sepsis Present: No Septic Shock Present: No Progress Differential Diagnoses I considered the following diagnoses in my evaluation of the patient: [ Electrolyte disturbance, decreased by mouth intake, dehydration, intra-abdominal infection, abdominal wall cellulitis, SBO] Plan of Care: Orders Procedure Date/time Status PHOSPHORUS 12/19 1116 Complete MAGNESIUM 12/19 1116 Complete COMPREHENSIVE METABOLIC PANEL 12/19 1116 Complete CBC WITHOUT DIFFERENTIAL 12/19 1116 Complete CALCIUM 12/19 1116 Complete EKG 12/19 1026 Active Laboratory Tests 12/19/16 1131: Anion Gap 10, Estimated GFR > 60, BUN/Creatinine Ratio 16.7, Glucose 65, Calcium 8.8, Phosphorus 3.5, Magnesium 1.9, Total Bilirubin 0.6, AST 34, ALT 47, Alkaline Phosphatase 70, Total Protein 6.1 L, Albumin 3.4 L, Globulin 2.7, Albumin/Globulin Ratio 1.3, CBC w Diff NO MAN DIFF REQ, RBC 3.82 L, MCV 88.2, MCH 29.9, RDW 13.4, MPV 7.9, Gran % 75.8 H, Lymphocytes % 15.7 L, Monocytes % 5.7, Eosinophils % 2.3, Basophils % 0.5, Absolute Granulocytes 4.9, Absolute Lymphocytes 1.0 L, Absolute Monocytes 0.4, Absolute Eosinophils 0.2, Absolute Basophils 0, PUBS MCHC 33.9 Patient is generally well-appearing. Recent gastric bypass last week. Decreased by mouth intake given smaller gastric antrum. History of hypokalemia prior to surgery and has had decreased by mouth intake over the past week. Patient also endorses diarrhea. Likely dehydration from decreased intake as well as hypokalemia secondary to diarrhea. We'll obtain basic labs to assess for electrolyte deficiencies and give 1 L IV fluids for hydration. She also endorses a mild headache and nausea. Will give Reglan 10 mg IV and Tylenol by mouth. Abdomen is soft nontender so unlikely SBO as an etiology of her weakness. Also patient does not have any vomiting to suggest an obstructive process. Abdominal wall incision are all laparoscopic and well-appearing no evidence of pus or erythema surrounding the incisions. Labs show mild hypokalemia at 3.8 and hypo-magnesiumemia at 1.9. Will potassium chloride 20 mEq IV in addition to 1 g of magnesium sulfate IV. Patient endorses significant improvement in symptoms after bolus and electrolyte replenishment. Headache has completely resolved with Tylenol/reglan. Patient tolerated by mouth without issues. We'll discharge home to follow up with her primary care doctor as needed. Patient given return instructions. (JARVIS BAEZ,PEGGY) Initial ED EKG: normal axis, normal intervals, normal p-waves, normal QRS complex, normal sinus rhythm, NSR Prior EKG: unchanged Departure Departure Time of Disposition: 1554 Disposition: HOME OR SELF CARE Condition: Stable Clinical Impression Primary Impression: Hypokalemia Secondary Impressions: Migraine Referrals: DIMITRI FORMAN MD (PCP/Family) Additional Instructions: Please follow up with her primary care doctor as needed. We have repleted her potassium today and magnesium. It should you continue to have a regular diet, just make sure you eat small portions. If you have weakness, worsening pain or any other concerning symptoms, please return to the emergency department for evaluation. Departure Forms: Customer Survey General Discharge Information Critical Care Note Critical Care Note Critical Care Time: non-applicable
[2016-12-19 11:43] LABS: ABSOLUTE BASOPHIL COUNT 0 /CUMM (0.0-0.2); ABSOLUTE EOSINOPHIL COUNT 0.2 /CUMM (0.0-0.7); ABSOLUTE GRANULOCYTE CT 4.9 /CUMM (1.4-6.5); ABSOLUTE MONOCYTE COUNT 0.4 /CUMM (0.10-0.60); BASOPHIL % 0.5 % (0.0-2.0); EOSINOPHIL % 2.3 % (0-5); GRANULOCYTE % 75.8 % (42.2-75.2); HEMATOCRIT 33.7 % (37-47); MEAN CORPUSCULAR HGB 29.9 PG (27.0-31.0); MEAN CORPUSCULAR HGB CONC 33.9 G/DL (33.0-37.0); MEAN CORPUSCULAR VOLUME 88.2 FL (81.0-99.0); MEAN PLATELET VOLUME 7.9 FL (7.4-10.4); PLATELET COUNT 210 /CUMM (130-400); RBC DISTRIBUTION WIDTH 13.4 % (11.5-14.5); RED BLOOD CELL CT 3.82 /CUMM (4.20-5.40); WHITE BLOOD CELL COUNT 6.5 /CUMM (4.8-10.8)
[2016-12-19 14:40] VITALS: BP 126/84
== END 2016-12-19 16:02 ==
LOC: ERH 09:58 → CANBEDREQ 19:46
PROVIDERS: Emergency Medicine
DX: E87.6 Hypokalemia (principal); G43.909 Migraine, unspecified, not intractable, without status migrainosus
CPT/HCPCS: 93005; 93010; 96374; 96375; J2765; J7040

== ENCOUNTER 2017-01-02 01:46 | Emergency (ER) | payer OTHER ==
[~2017-01-02] VITALS: Ht 160 cm; Wt 103.9 kg
--- NOTE | 2017-01-02 02:40 | ED GI/GU/ABDOMINAL COMPLAINT ---
History of Present Illness General Chief Complaint: Abdominal Pain/Flank Pain Stated Complaint: RIGHT UPPER ABD PAIN Source: patient, family, old records Exam Limitations: no limitations Vital Signs & Intake/Output Vital Signs & Intake/Output Vital Signs Date Time Temp Pulse Resp B/P B/P Pulse O2 O2 Flow FiO2 Mean Ox Delivery Rate 01/02 0847 97.0 60 18 123/67 98 Room Air 01/02 0532 57 20 123/57 95 Room Air 01/02 0240 74 16 133/67 97 Room Air 01/02 0154 98.6 90 22 131/82 94 Room Air Allergies Coded Allergies: No Known Allergies (12/08/16) Reconcile Medications Atenolol 25 MG TABLET 0.5 TAB PO DAILY BP (Reported) take 12.5 mg daily (half tablet) per instead of full dose Methadone HCl 5 MG/5 ML SOLUTION 128 MG PO DAILY PAIN (Reported) Pantoprazole Sodium (Protonix) 40 MG TABLET.DR 1 TAB PO DAILY anti ulcer Triage Note: PT TO ED C/O R SIDED ABD PAIN AND "PAIN UNDER R BREAST" STARTED YESTERDAY, WORSE TONIGHT . "WOKE ME UP OUT OF SLEEP." HX GASTRIC BYPASS 2.5 WEEKS AGO. PT REPORTS SHE WAS GIVEN "PINKISH MILKY LIQUID" FROM SURGEON TO TAKE FOR PAIN/TO SETTLE STOMACH. PT REPORTS SHE WAS INSTRUCTED TO REMAIN NPO BY SURGEON. HAS APPT WITH SURGEON TODAY AT 1000. Triage Nurses Notes Reviewed? yes ? N Is pt currently ? No HPI: Patient started with sharp stabbing upper quadrant pain that radiates out to the right mid quadrant yesterday. Patient spoke to her surgeon and he prescribed Carafate. Patient states that she took 2 doses and it seemed to help but that the pain woke her up and it was much worse than it was earlier. Positive nausea but no vomiting. Patient states that it feels like water is not even going down. Patient is possibly 2 and half weeks out of gastric bypass. There are no fevers or chills. The pain is currently 10 out of 10. (SHAE BAEZ,REBEL Johnson) Past History Travel History Traveled to [place] past 21 day No Medical History Any Pertinent Medical History? 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 Hx Contributory? No (SHAE BAEZ,REBEL Johnson) Review of Systems Review of Systems Constitutional: Reports: no symptoms. EENTM: Reports: no symptoms. Respiratory: Reports: no symptoms. Cardiovascular: Reports: no symptoms. GI: Reports: see HPI, abdominal pain, nausea. Genitourinary: Reports: no symptoms. Musculoskeletal: Reports: no symptoms. Skin: Reports: no symptoms. Neurological/Psychological: Reports: no symptoms. Hematologic/Endocrine: Reports: no symptoms. Immunologic/Allergic: Reports: no symptoms. All Other Systems: Reviewed and Negative (SHAE BAEZ,REBEL Johnson) Physical Exam Physical Exam General Appearance: well developed/nourished, alert, awake, moderate distress Head: atraumatic, normal appearance Eyes: Bilateral: PERRL, EOMI. Ears, Nose, Throat, Mouth: hearing grossly normal, moist mucous membrane Neck: normal inspection, supple, full range of motion Respiratory: normal breath sounds, chest non-tender, no respiratory distress, lungs clear Cardiovascular: regular rate/rhythm, normal peripheral pulses Gastrointestinal: normal bowel sounds, soft, no organomegaly, tenderness (RUQ) Back: normal inspection, normal range of motion Extremities: normal range of motion Neurologic/Psych: no motor/sensory deficits, awake, alert, oriented x 3, normal mood/affect Skin: intact, normal color, warm/dry Core Measures ACS in differential dx? No Severe Sepsis Present: No Septic Shock Present: No (SHAE BAEZ,REBEL Johnson) Progress Differential Diagnosis: bowel obstruction, cholecystitis, diverticulitis, gastritis, hepatitis, ischemic bowel, inflamm bowel dis, peptic ulcer, PUD/GERD, perforated viscous, SBO Plan of Care: Orders Procedure Date/time Status EKG 01/02 0244 Active URINALYSIS 01/02 0239 Complete LIPASE 01/02 0239 Complete COMPREHENSIVE METABOLIC PANEL 01/02 239 Complete CBC WITHOUT DIFFERENTIAL 01/02 239 Complete AMYLASE 01/02 239 Complete Laboratory Tests 01/02/17 0420: Urinalysis LIGHT H, Urine Color YEL, Urine Clarity HAZY H, Urine pH 6.0, Ur Specific [place] >= 1.030, Urine Protein TRACE H, Urine Ketones 40 H, Urine Nitrite NEG, Urine Bilirubin POS@ICTO H, Urine Urobilinogen 0.2, Ur Leukocyte Esterase NEG, Ur Microscopic SEDIMENT EXAMINED, Urine RBC 1-3, Urine WBC 1-3 H, Ur Epithelial Cells MOD H, Urine Bacteria RARE H, Urine Mucus MOD H, Urine Hemoglobin NEG, Urine Glucose NEG 01/02/17 0341: Anion Gap 8, Estimated GFR > 60, BUN/Creatinine Ratio 21.7, Glucose 100 H, Calcium 8.8, Total Bilirubin 0.5, AST 18, ALT 38, Alkaline Phosphatase 63, Total Protein 6.3, Albumin 3.7, Globulin 2.6, Albumin/Globulin Ratio 1.4, Amylase 42, Lipase 129 01/02/17 0253: CBC w Diff NO MAN DIFF REQ, RBC 4.32, MCV 89.3, MCH 29.4, RDW 13.9, MPV 8.7, Gran % 54.6, Lymphocytes % 32.9, Monocytes % 8.6, Eosinophils % 3.0, Basophils % 0.9, Absolute Granulocytes 2.6, Absolute Lymphocytes 1.6, Absolute Monocytes 0.4 , Absolute Eosinophils 0.1, Absolute Basophils 0, PUBS MCHC 32.9 L Diagnostic Imaging: Viewed by Me: CT Scan. Discussed w/RAD: CT Scan. Initial ED EKG: NSR, nonspecific ST T wave chg Prior EKG: unchanged Hand-Off Endorsed To: ANN BAEZ,ALEKS Mauricio Endorsed Time: 0700 Pending: consult, ultrasound Comments: D/W DR. Julian RAMIREZ, ULTRASOUND ORDERED TO R/O CHOLECYSTITIS, IF NEGATIVE, PROBABLE ULCER. HE WILL HAVE DR. WAGNER CALL, POSSIBLE ADMIT. (SHAE BAEZ,REBEL Johnson) Radiology Impression: PATIENT: ANTWON WEAVER PRESENT AGE: 41 PATIENT ACCOUNT NO: [id number] : 74 LOCATION: [facility] ORDERING PHYSICIAN: REBEL WU MD SERVICE DATE: 01/02/17 EXAM TYPE: US - US-LIMITED ABDOMEN EXAMINATION: ABDOMINAL ULTRASOUND CLINICAL INFORMATION: Right upper quadrant pain. COMPARISON: CT performed earlier the same day. TECHNIQUE: Routine grayscale and color Doppler imaging is provided for interpretation. Selected static images are provided for interpretation. FINDINGS : Limited visualization of the pancreas appears unremarkable. The liver, gallbladder, and biliary tree appear unremarkable. The extrahepatic common duct is non dilated measuring 0.3 cm maximal dimension. Limited visualization of the right kidney is grossly unremarkable without evidence of hydronephrosis or nephrolithiasis. There is no intraperitoneal free fluid identified. IMPRESSION: 1. Limited pancreatic visualization. 2. No evidence cholelithiasis or acute cholecystitis. DICTATED BY: DARBY PAREDES MD DATE/TIME DICTATED:01/02/17814 BROADCASTING EQUIPMENT MECHANIC:MALACHI DATE/TIME TRANSCRIBED:01/02/17814 CONFIDENTIAL, DO NOT COPY WITHOUT APPROPRIATE AUTHORIZATION. <Electronically signed in Other Vendor System> SIGNED BY: DARBY PAREDES MD 01/02/17822 , PATIENT: ANTWON WEAVER PRESENT AGE: 41 PATIENT ACCOUNT NO: [id number] : 74 LOCATION: [facility] ORDERING PHYSICIAN: REBEL WU MD SERVICE DATE: 01/02/17 EXAM TYPE: CAT - CT ABD & PELVIS W IV CONTRAST EXAMINATION: CT ABDOMEN AND PELVIS WITH CONTRAST CLINICAL INFORMATION: Right upper quadrant pain. Two and a half weeks post gastric sleeve. COMPARISON: CT from 05/15/2014 and 05/16/2007. TECHNIQUE: Multidetector volumetric imaging was performed of the abdomen and pelvis before and after the IV administration of 95 mL of Optiray 320 intravenous contrast. Oral contrast was also utilized for bariatric protocol. Sagittal and coronal reformatted images were obtained on the technologist's workstation. DLP: 815 mGy-cm FINDINGS : LUNG BASES: The visualized lung bases are unremarkable. LIVER, GALLBLADDER, AND BILIARY TREE: The liver is normal in size, shape, and attenuation. No focal hepatic lesion or biliary ductal dilatation is present. The gallbladder is unremarkable with no evidence of radiopaque gallstones, gallbladder wall thickening, or obvious pericholecystic inflammatory changes. PANCREAS: Unremarkable. SPLEEN: Unremarkable. ADRENAL GLANDS: The left adrenal gland is unremarkable. There is a 2 cm hypoattenuating nodule in the right adrenal gland. This does not meet criteria for a lipid rich adenoma on the current study. This is unchanged from the prior study from 2007. KIDNEYS AND URETERS: The kidneys are normal in size, shape, and attenuation. No hydronephrosis, hydroureter, or calculi seen. No perinephric stranding. BLADDER: Unremarkable. GASTROINTESTINAL TRACT: Status post Mitzy-en-Y gastric bypass. Contrast flows freely beyond the gastric pouch and into the small bowel. No obstruction. No contrast extravasation noted. Normal appendix. Mild colonic stool burden. No free air or free fluid. ABDOMINAL WALL: No significant hernia is appreciated. LYMPH NODES: Normal. VASCULAR: Bilateral iliac venous stents extending into the inferior vena cava. PELVIC VISCERA: The uterus is not seen. No adnexal mass. OSSEOUS STRUCTURES: No acute or suspicious osseous abnormality. Mild degenerative changes of the spine. IMPRESSION: No acute abnormality of the abdomen or pelvis. Status post Mitzy-en-Y gastric bypass is new from the previous CT. No obstruction. DICTATED BY: PRACHI ESQUIVEL MD DATE/TIME DICTATED:01/02/17457 BROADCASTING EQUIPMENT MECHANIC:MALACHI DATE/TIME TRANSCRIBED:01/02/17457 CONFIDENTIAL, DO NOT COPY WITHOUT APPROPRIATE AUTHORIZATION. <Electronically signed in Other Vendor System> SIGNED BY: PRACHI ESQUIVEL MD 01/02/17 0506 Comments: 01/02/2017 7:10:37 AM patient signed out to me by Dr. Wu at shift waste/materials exchange specialist. 01/02/2017 9:37:03 AM patient's case discussed with Dr. Wagner who reviewed the patient's evaluation here in the emergency department. He feels that she can continue her current medications and follow-up with him tomorrow. (ANN BAEZ,ALEKS Mauricio) Departure Departure Condition: Stable Clinical Impression Primary Impression: Upper abdominal pain, unspecified Referrals: DIMITRI FORMAN MD (PCP/Family) Departure Forms: Customer Survey General Discharge Information (SHAE BAEZ,REBEL Johnson) Departure Disposition: HOME OR SELF CARE Additional Instructions: The cause of your abdominal pain is somewhat unclear at this point. Please continue Your current medications and follow-up with Dr. Wagner tomorrow. Notify your primary care doctor of this emergency department visit and treatment plan. Return if any concerns or sudden worsening. Please note that there might be incidental findings in your evaluation that are unrelated to the current emergency department visit. Please notify your primary care doctor about this emergency department visit in order to obtain and review all of the testing performed so that these incidental findings can be monitored as needed. If you had an x-ray performed, please understand that some fractures may not be seen on the initial set of x-rays. If your symptoms persist you might need a repeat set of x-rays to check for such a fracture. If you had a laceration evaluated, please understand that foreign bodies such as glass or wood may not be visible to the naked eye or on plain x-rays. If the wound becomes red, swollen, increasingly more painful or if there is any drainage from the wound, please have it reevaluated by a physician for the possibility of a retained foreign body. Thank you for choosing the [facility] Emergency Department for your care. It was a pleasure to serve you today. Aleks Alvares M.D. [facility] (ANN BAEZ,ALEKS Mauricio) Critical Care Note Critical Care Note Critical Care Time: 30-74 min (ANN BAEZ,ALEKS Mauricio)
[2017-01-02 03:01] LABS: ABSOLUTE BASOPHIL COUNT 0 /CUMM (0.0-0.2); ABSOLUTE EOSINOPHIL COUNT 0.1 /CUMM (0.0-0.7); ABSOLUTE GRANULOCYTE CT 2.6 /CUMM (1.4-6.5); ABSOLUTE LYMPH COUNT 1.6 /CUMM (1.2-3.4); ABSOLUTE MONOCYTE COUNT 0.4 /CUMM (0.10-0.60); BASOPHIL % 0.9 % (0.0-2.0); GRANULOCYTE % 54.6 % (42.2-75.2); HEMATOCRIT 38.6 % (37-47); MEAN CORPUSCULAR HGB 29.4 PG (27.0-31.0); MEAN CORPUSCULAR HGB CONC 32.9 G/DL (33.0-37.0); MEAN CORPUSCULAR VOLUME 89.3 FL (81.0-99.0); MEAN PLATELET VOLUME 8.7 FL (7.4-10.4); PLATELET COUNT 227 /CUMM (130-400); RBC DISTRIBUTION WIDTH 13.9 % (11.5-14.5); RED BLOOD CELL CT 4.32 /CUMM (4.20-5.40); WHITE BLOOD CELL COUNT 4.8 /CUMM (4.8-10.8)
--- NOTE | 2017-01-02 05:06 | CT SCAN REPORT ---
EXAMINATION: CT ABDOMEN AND PELVIS WITH CONTRAST CLINICAL INFORMATION: Right upper quadrant pain. Two and a half weeks post gastric sleeve. COMPARISON: CT from 05/15/2014 and 05/16/2007. TECHNIQUE: Multidetector volumetric imaging was performed of the abdomen and pelvis before and after the IV administration of 95 mL of Optiray 320 intravenous contrast. Oral contrast was also utilized for bariatric protocol. Sagittal and coronal reformatted images were obtained on the technologist's workstation. DLP: 815 mGy-cm FINDINGS: LUNG BASES: The visualized lung bases are unremarkable. LIVER, GALLBLADDER, AND BILIARY TREE: The liver is normal in size, shape, and attenuation. No focal hepatic lesion or biliary ductal dilatation is present. The gallbladder is unremarkable with no evidence of radiopaque gallstones, gallbladder wall thickening, or obvious pericholecystic inflammatory changes. PANCREAS: Unremarkable. SPLEEN: Unremarkable. ADRENAL GLANDS: The left adrenal gland is unremarkable. There is a 2 cm hypoattenuating nodule in the right adrenal gland. This does not meet criteria for a lipid rich adenoma on the current study. This is unchanged from the prior study from 2006. KIDNEYS AND URETERS: The kidneys are normal in size, shape, and attenuation. No hydronephrosis, hydroureter, or calculi seen. No perinephric stranding. BLADDER: Unremarkable. GASTROINTESTINAL TRACT: Status post Mitzy-en-Y gastric bypass. Contrast flows freely beyond the gastric pouch and into the small bowel. No obstruction. No contrast extravasation noted. Normal appendix. Mild colonic stool burden. No free air or free fluid. ABDOMINAL WALL: No significant hernia is appreciated. LYMPH NODES: Normal. VASCULAR: Bilateral iliac venous stents extending into the inferior vena cava. PELVIC VISCERA: The uterus is not seen. No adnexal mass. OSSEOUS STRUCTURES: No acute or suspicious osseous abnormality. Mild degenerative changes of the spine. IMPRESSION: No acute abnormality of the abdomen or pelvis. Status post Mitzy-en-Y gastric bypass is new from the previous CT. No obstruction.
--- NOTE | 2017-01-02 08:23 | ULTRASOUND REPORT ---
EXAMINATION: ABDOMINAL ULTRASOUND CLINICAL INFORMATION: Right upper quadrant pain. COMPARISON: CT performed earlier the same day. TECHNIQUE: Routine grayscale and color Doppler imaging is provided for interpretation. Selected static images are provided for interpretation. FINDINGS: Limited visualization of the pancreas appears unremarkable. The liver, gallbladder, and biliary tree appear unremarkable. The extrahepatic common duct is non dilated measuring 0.3 cm maximal dimension. Limited visualization of the right kidney is grossly unremarkable without evidence of hydronephrosis or nephrolithiasis. There is no intraperitoneal free fluid identified. IMPRESSION: 1. Limited pancreatic visualization. 2. No evidence cholelithiasis or acute cholecystitis.
[2017-01-02 09:49] VITALS: BP 117/55
== END 2017-01-02 10:00 ==
LOC: ERH 01:46
PROVIDERS: Emergency Medicine
DX: R10.10 Upper abdominal pain, unspecified (principal)
CPT/HCPCS: 74177; 81001; 93005; 93010; 96374; 96376

== ENCOUNTER 2018-04-02 17:50 | Emergency (ER) | payer OTHER ==
[~2018-04-02] VITALS: Ht 157.5 cm; Wt 70.8 kg
[~2018-04-02 17:50] MED LIST changes: +LASIX40 M1 PO; +NAPROSYN500 M1 PO; +NORCO 5-325 TA1 EACH PO
--- NOTE | 2018-04-02 18:31 | RADIOLOGY REPORT ---
EXAMINATION: XR SHOULDER, RIGHT CLINICAL INFORMATION: Right shoulder pain. COMPARISON: Right shoulder 10/17/2017 TECHNIQUE: AP external rotation, Grashey, scapular Y, and axillary views of the right shoulder. FINDINGS: The bones and soft tissues are normal. No fracture. Glenohumeral and acromioclavicular alignment is anatomic with normal joint space. No abnormal soft tissue calcifications. On the exam of 10/17/2017 there were multiple calcifications in the soft tissues adjacent to the humeral head. These are not present exam. IMPRESSION: Normal right shoulder.
[2018-04-02] MEDS ORDERED: PERCOCET 5-3251 EACH PO (19:26)
--- NOTE | 2018-04-02 19:28 | ED UPPER/LOWER EXTREMITY COMPL ---
History of Present Illness General Chief Complaint: Shoulder Injury Stated Complaint: R SHOULDER PAIN, NO INJURY, STATES BONE OUT Source: patient Exam Limitations: no limitations Vital Signs & Intake/Output Vital Signs & Intake/Output Vital Signs Date Time Temp Pulse Resp B/P B/P Pulse O2 O2 Flow FiO2 Mean Ox Delivery Rate 04/02 1940 71 16 121/78 97 Room Air 04/02 1804 96.0 65 15 128/77 95 Room Air Room Air Allergies Coded Allergies: No Known Allergies (04/02/18) Reconcile Medications Furosemide (Lasix) 40 MG TABLET 1 TAB PO DAILY EDEMA (Reported) Hydrocodone/Acetaminophen ([place] 5-325 Tablet) 5 MG-325 MG TABLET 1 TAB PO Q4- 6 PRN PRN pain Naproxen (Naprosyn) 500 MG TABLET 1 TAB PO BID PRN pain Oxycodone HCl/Acetaminophen (Percocet 5-325 MG Tablet) 5 MG-325 MG TABLET 1-2 TAB PO BID PAIN Pantoprazole Sodium (Protonix) 40 MG TABLET.DR 1 TAB PO DAILY anti ulcer Triage Note: PT TO ED FOR C/C OF R SHOULDER PAIN S/P SLEEPING ON IT AND PT WOKE UP WITH BUMP ON R SHOULDER AND VERY LIMITED ROM. PT DOES HAVE DEFORMITY NOTED IN TRIAGE. MEDICATED WITH TYLENOL IN TRIAGE. Triage Nurses Notes Reviewed? yes Onset: Abrupt Duration: day(s): Timing: recent history Severity: moderate, severe Pain/Injury Location: Right: Shoulder. Method of Injury: unknown No Modifying Factors: none : No Patient currently breastfeeds: No HPI: 42-year-old female comes into the emergency room for further evaluation of right shoulder pain. Symptoms been going on since she will go up this morning. She denies any injury that she can recall. Denies any falls or trauma. She comes in for further evaluation. She reports that she cannot lift her right shoulder. (Hilario Paris) Past History Travel History Traveled to [place] past 21 day No Medical History Any Pertinent Medical History? 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 Hx Contributory? No (Hilario Paris) Review of Systems Review of Systems Constitutional: Reports: no symptoms. EENTM: Reports: no symptoms. Respiratory: Reports: no symptoms. Cardiovascular: Reports: no symptoms. Gastrointestinal/Abdominal: Reports: no symptoms. Genitourinary: Reports: no symptoms. Musculoskeletal: Reports: see HPI. Skin: Reports: no symptoms. Neurological/Psychological: Reports: no symptoms. Hematologic/Endocrine: Reports: no symptoms. Immunological: Reports: no symptoms. All Other Systems: Reviewed and Negative (Hilario Paris) Physical Exam Physical Exam General Appearance: well developed/nourished, mild distress Head: atraumatic Eyes: Bilateral: normal appearance. Ears, Nose, Throat: normal ENT inspection, hearing grossly normal Neck: normal inspection Cardiovascular/Respiratory: no respiratory distress Back: normal inspection Shoulder Right: soft tissue tenderness, severely limited range of motion of right shoulder, patient has pain with abduction and adduction, cannot evaluate rotator cuff secondary to pain, tenderness over ac joint, mild soft tissue tenderness over the acromion, no erythema, exam limited secondary to patient's pain Neurologic/Tendon: normal sensation, normal motor functions, normal tendon functions, responds to pain, no evidence tendon injury, no pulse deficit Skin: intact, normal color, warm/dry (Hilario Paris) Progress Differential Diagnosis: contusion, dislocation, fracture, septic arthritis, sprain, tendon injury, cyst, rotator cuff injury Plan of Care: Orders Procedure Date/time Status Durable Medical Equipment 04/02 1954 Active Diagnostic Imaging: Viewed by Me: Radiology Read. Discussed w/RAD: Radiology Read. Radiology Impression: PATIENT: ANTWON WEAVER PRESENT AGE: 42 PATIENT ACCOUNT NO: [id number] : 74 LOCATION: [facility] ORDERING PHYSICIAN: Hilario REBOLLAR SERVICE DATE: 04/02/18 EXAM TYPE : RAD - XRY-SHOULDER COMPLETE-RIGHT EXAMINATION: XR SHOULDER, RIGHT CLINICAL INFORMATION: Right shoulder pain. COMPARISON: Right shoulder 10/17/2017 TECHNIQUE: AP external rotation, Grashey, scapular Y, and axillary views of the right shoulder. FINDINGS: The bones and soft tissues are normal. No fracture. Glenohumeral and acromioclavicular alignment is anatomic with normal joint space. No abnormal soft tissue calcifications. On the exam of 10/17/2017 there were multiple calcifications in the soft tissues adjacent to the humeral head. These are not present exam. IMPRESSION: Normal right shoulder. DICTATED BY: Jonatan Granados MD DATE/TIME DICTATED:04/02/181825 MOLDED PARTS INSPECTOR:MALACHI DATE/TIME TRANSCRIBED:04/02/181825 CONFIDENTIAL, DO NOT COPY WITHOUT APPROPRIATE AUTHORIZATION. <Electronically signed in Other Vendor System> SIGNED BY: Jonatan Granados MD 04/02/181830 (Hilario Paris) Departure Departure Disposition: HOME OR SELF CARE Condition: Stable Clinical Impression Primary Impression: Right shoulder pain Referrals: Mello Irving MD (PCP/Family) Additional Instructions: Take Percocet for pain. Follow-up with orthopedic doctor. Return if any concerns worsening symptoms. Please go over all results of today's visit with your primary care doctor. Contact your primary care doctor to let them know you were here in the emergency room. There may be nonspecific findings which may not be related to your visit today here in the emergency room but may require further evaluation and chronic monitoring by your primary care doctor. If you had a laceration today the chance of foreign body always remains. You should follow-up with your primary care doctor for recheck in 3-5 days for a wound check. If you had an x-ray done there is a chance that a fracture could have been missed on initial read and you should follow-up with your primary care doctor for repeat x-rays if symptoms persist. If your blood pressure was elevated here in the emergency room please have rechecked by [facility] primary care doctor within the next 48. If you were prescribed a narcotic here in the emergency room or any type of controlled substances you're not allowed to drive while taking this medication or operate any type of heavy machinery. Narcotics can make you feel lightheaded dizziness nausea and can cause constipation. You may need to supervisor opening and picking a stool softener. Thank you for choosing [facility] emergency room. Please return to the emergency room immediately if you have any other concerns worsening of symptoms. Departure Forms: Customer Survey General Discharge Information Prescriptions: Current Visit Scripts Oxycodone HCl/Acetaminophen (Percocet 5-325 MG Tablet) 1-2 TAB PO BID #10 TAB Comments 04/02/2018 8:46:27 PM Exam is limited secondary to the patient's pain. Unable to perform a proper exam. Follow-up with the star route mail driver Dr. Gong if any other concerns worsening symptoms. Patient understands and agrees with plan of care. (Hilario Paris) PA/REC THERAPIST Co-Sign Statement Statement: ED Attending supervision documentation- I saw and evaluated the patient. I have also reviewed all the pertinent lab results and diagnostic results. I agree with the findings and the plan of care as documented in the PA's/REC THERAPIST's documentation. x I have reviewed the ED Record and agree with the PA's/REC THERAPIST's documentation. [] Additions or exceptions (if any) to the PAs/REC THERAPIST's note and plan are summarized below: [] (Katerine BAEZ,Octavio) Procedures Splinting Location: right shoulder Manual Alignment Performed: No Pre-Made Type: shoulder immobilizer Splint Applied By: splint applied by me Pre-Proc Neuro Vasc Exam: normal Post-Proc Neuro Vasc Exam: normal (Hilario Paris)
[2018-04-02 19:40] VITALS: BP 121/78
== END 2018-04-02 19:50 ==
LOC: ERH 17:50
DX: M25.511 Pain in right shoulder (principal)
CPT/HCPCS: 73030-RT